=== PATIENT | female | born 1965 | race Caucasian/White ===

== ENCOUNTER → 2017-12-11 | Outpatient (CLI) | payer OTHER ==
[~2017-12-11] MED LIST: AMBIEN CR12.5 MG; CIPRO500 MG PO; HYDROCODONE BIT1 T11 PO; MOTRIN800 MG PO; Motrin,Rufen800 MG PO; PERCOCET 325 MG1 TA2 PO; PREDNISONE10 MG; PROZAC40 MG; VICODIN 5/500 505 MG
== END | disposition home or self-care (01) ==
LOC: MRI 11:00
DX: R55 Syncope and collapse (principal); R51 Headache

== ENCOUNTER 2018-07-29 19:21 | Emergency (ER) | payer OTHER ==
[~2018-07-29] VITALS: Ht 160 cm; Wt 65.8 kg
[2018-07-29 19:28] VITALS: BP 163/92
[2018-07-29] MEDS ORDERED: ROBAXIN-750750 MG PO (22:08)
[2018-07-29] MEDS ORDERED: PREDNISONE10 MG PO (22:08)
== END 2018-07-29 22:14 ==
LOC: ED 19:21
DX: M50.30 Other cervical disc degeneration, unspecified cervical region (principal); Z88.6 Allergy status to analgesic agent

== ENCOUNTER → 2018-11-12 | Outpatient (CLI) | payer OTHER ==
[~2018-11-12] MED LIST changes: +PREDNISONE10 MG PO; +ROBAXIN-750750 MG PO
[2018-11-12 13:18] LABS: CREATININE 0.68 mg/dL (0.55-1.02)
== END | disposition home or self-care (01) ==
LOC: LAB 12:46 → CT 12:46
PROVIDERS: Internal Medicine
DX: R06.02 Shortness of breath (principal)

== ENCOUNTER → 2019-02-12 | Outpatient (CLI) | payer OTHER ==
[2019-02-12 13:08] LABS: BASO % 0.6 % (0.0-1.0); EOS # 0.2 10*3/uL (0.0-0.4); EOS % 3.5 % (1.0-4.0); HEMATOCRIT 44.4 % (37.0-47.0); HEMOGLOBIN 14.4 g/dl (12.0-16.0); LYMPH # 1.4 10*3/uL (1.3-4.4); LYMPH % 26.6 % (27.0-41.0); MEAN CELL VOLUME 92.3 fl (81.0-99.0); MEAN CORPUSCULAR HGB 29.9 pg (27.0-31.0); MEAN CORPUSCULAR HGB CONC 32.4 g/dl (33.0-37.0); MEAN PLATELET VOLUME 10.6 fl (9.6-12.3); MONO # 0.7 10*3/uL (0.1-1.0); MONO % 14.3 % (3.0-9.0); NEUT # 2.9 10*3/uL (2.3-7.9); NEUT % 54.8 % (47.0-73.0); PLATELET COUNT AUTOMATED 238 10*3/uL (130-400); RED BLOOD COUNT 4.81 10*6/uL (4.10-5.10); RED CELL DISTRI WIDTH 12.4 % (0-14.5); WHITE BLOOD COUNT 5.2 10*3/uL (4.8-10.8)
[2019-02-12 13:28] LABS: ALBUMIN 3.5 gm/dl (3.1-4.5); BUN 11 mg/dl (7-24); CHLORIDE 107 mmol/L (98-107); CHOLESTEROL 168 mg/dL (<200); FREE T4 2.47 ng/dl (0.76-1.46); SGOT/AST 78 IU/L (3-35); SGPT/ALT 63 U/L (12-78); SODIUM 140 mmol/L (136-145); TRIGLYCERIDES 165 mg/dl (<150); VLDL CHOLESTEROL 33 mg/dL (6-40)
[2019-02-12 13:35] LABS: ALKALINE PHOSPHATASE 87 U/L (45-117); HDL CHOLESTEROL 50 mg/dl (40-60); LDL CHOLESTEROL 85 mg/dL (9-159)
[2019-02-12 13:38] LABS: THYROID STIM HORMONE (HS) < 0.005 uIU/ml (0.358-4.75)
[2019-02-12 14:04] LABS: VITAMIN D, 25-HYDROXY 57.9 ng/mL (30-100)
== END | disposition home or self-care (01) ==
LOC: MAMMO 10:40 → LAB 10:51 → RAD 11:00
PROVIDERS: Internal Medicine
DX: Z13.1 Encounter for screening for diabetes mellitus (principal); Z13.21 Encounter for screening for nutritional disorder; Z13.220 Encounter for screening for lipoid disorders; E03.9 Hypothyroidism, unspecified; E55.9 Vitamin D deficiency, unspecified; E78.2 Mixed hyperlipidemia; R70.0 Elevated erythrocyte sedimentation rate; R79.82 Elevated C-reactive protein (CRP); Z78.0 Asymptomatic menopausal state

== ENCOUNTER → 2019-03-05 | Outpatient (CLI) | payer OTHER | END | disposition home or self-care (01) | LOC: NM 03-04 07:00 | DX: E03.9 Hypothyroidism, unspecified (principal) ==

== ENCOUNTER → 2019-03-10 | Outpatient (CLI) | payer OTHER | END | disposition home or self-care (01) | LOC: US 13:26 | DX: E03.9 Hypothyroidism, unspecified (principal) ==

== ENCOUNTER → 2019-03-19 | Outpatient (CLI) | payer OTHER | END | disposition home or self-care (01) | LOC: US 10:51 | DX: R10.84 Generalized abdominal pain (principal) ==

== ENCOUNTER 2019-09-16 12:41 | Inpatient (IN) | payer OTHER ==
[~2019-09-16] VITALS: Ht 152.4 cm; Wt 57.2 kg
[2019-09-16 13:20] VITALS: BP 150/80
--- NOTE | 2019-09-16 13:20 | NUR ---
Time: 1319 A 54 year old FEMALE admitted to under services of DR. RAFAEL JAMA,KALANI. Pt. arrived via wheel chair from [place]. Chief complaint: ABD PAIN., DIARRHEA . LEXY MEDINA
[2019-09-16] MEDS ORDERED: AMBIEN10 M1 PO (13:28)
[2019-09-16] MEDS ORDERED: LYRICA100 M1 PO (13:29)
[2019-09-16] MEDS ORDERED: MIRAPEX1.5 MG PO (13:29)
[2019-09-16] MEDS ORDERED: SINGULAIR10 M1 PO (13:29)
[2019-09-16] MEDS ORDERED: NEXIUM40 MG PO (13:32)
[2019-09-16] MEDS ORDERED: CYMBALTA60 MG PO (13:36)
--- NOTE | 2019-09-16 13:37 | NUR ---
DR METZGER HERE TO SEE PT
[2019-09-16 13:54] LABS: BASO % 0.2 % (0.0-1.0); EOS # 0.1 10*3/uL (0.0-0.4); EOS % 2.4 % (1.0-4.0); HEMATOCRIT 43.3 % (37.0-47.0); HEMOGLOBIN 14.1 g/dl (12.0-16.0); LYMPH # 1.6 10*3/uL (1.3-4.4); LYMPH % 34.1 % (27.0-41.0); MEAN CELL VOLUME 83.8 fl (81.0-99.0); MEAN CORPUSCULAR HGB 27.3 pg (27.0-31.0); MEAN CORPUSCULAR HGB CONC 32.6 g/dl (33.0-37.0); MEAN PLATELET VOLUME 10.4 fl (9.6-12.3); MONO # 0.6 10*3/uL (0.1-1.0); MONO % 12.1 % (3.0-9.0); NEUT # 2.3 10*3/uL (2.3-7.9); PLATELET COUNT AUTOMATED 268 10*3/uL (130-400); RED BLOOD COUNT 5.17 10*6/uL (4.10-5.10); RED CELL DISTRI WIDTH 13.2 % (0-14.5); WHITE BLOOD COUNT 4.6 10*3/uL (4.8-10.8)
[2019-09-16 14:09] LABS: ALBUMIN 3.5 gm/dl (3.1-4.5); ALKALINE PHOSPHATASE 104 U/L (45-117); BUN 11 mg/dl (7-24); CHLORIDE 109 mmol/L (98-107); CREATININE 0.36 mg/dL (0.55-1.02); POTASSIUM 3.6 mmol/L (3.5-5.1); SGOT/AST 34 IU/L (3-35); SGPT/ALT 37 U/L (12-78); SODIUM 139 mmol/L (136-145); TOTAL PROTEIN 6.9 gm/dL (6.4-8.2)
[2019-09-16 14:12] LABS: BUN 10 mg/dl (7-24); CHLORIDE 108 mmol/L (98-107); CREATININE 0.36 mg/dL (0.55-1.02); FREE T4 5.79 ng/dl (0.76-1.46); POTASSIUM 3.7 mmol/L (3.5-5.1); SODIUM 139 mmol/L (136-145)
[2019-09-16 14:22] LABS: ETHYL ALCOHOL < 3.0 mg/dl (<3); THYROID STIM HORMONE (HS) < 0.005 uIU/ml (0.358-4.75)
--- NOTE | 2019-09-16 14:57 | NUR ---
IV started left antecubital with #22 angiocath after 1 attempts. The IV site was prepped with Chloraprep. Heparin lock attached. Sterile dressing applied. Patient tolerated precedure well. Procedure performed according to [facility] policy & procedure. LEXY MEDINA
[2019-09-16 16:00] VITALS: BP 148/73
[2019-09-16 20:00] VITALS: BP 151/68
--- NOTE | 2019-09-16 23:42 | NUR ---
DR. HALL STATED IT WAS OK TO CONTINUE HER JOSE LUIS
[2019-09-17] VITALS: BP 146/87
[2019-09-17 08:00] VITALS: BP 135/74
--- NOTE | 2019-09-17 09:00 | NUR ---
First Calender Worker in to see patient. She is currently not in her room. Will follow up at a later time.
[2019-09-17 12:00] VITALS: BP 126/66
--- NOTE | 2019-09-17 12:44 | NUR ---
Barker Operator in to talk to patient. Patient states lives at home with her life partner. There are 13 steps in the home. Physician: Dr. Michelle Youngblood [facility] health services: none Patient's level of ADLs: INDEPENDENT Patient has working utilities: yes DME: none Follow-up physician's appointment after d/c: she prefers to make her own follow up appt after discharge Does patient want to access PORTAL?: no Discharge plan discussed with patient. She lives at home with her life partner. She is independent in her ADLs and ambulation. Discussed home health care services and she denies any home needs at this time. When medically stable she will be discharged ot home. Her life partner will provide transportation on discharge. Stools for c-diff, O&P, and cultures pending. FLO MARR
[2019-09-17 16:00] VITALS: BP 152/78
--- NOTE | 2019-09-17 20:35 | NUR ---
COLO PREP STARTED.
[2019-09-18] VITALS (8 sets, daily range): BP systolic 108–146; BP diastolic 65–95
[2019-09-18 06:16] LABS: THYROID PEROXIDASE (TPO) AB 158 IU/mL (0-34)
--- NOTE | 2019-09-18 07:58 | NUR ---
Shift chart check completed.
--- NOTE | 2019-09-18 08:16 | NUR ---
pt complain of nausea, zofran given. will monitor for effectiveness. pt states stool clear yellow, received all colo prep
--- NOTE | 2019-09-18 09:00 | NUR ---
Customer Service Voice in to see patient. No new needs or request at this time. She denies any home needs. When medically stable she will be discharged to home. She is scheduled for an EGD/colo today.
[2019-09-18 14:08] LABS: THYROGLOBULIN ANTIBODY <1.0 IU/mL (0.0-0.9)
--- NOTE | 2019-09-18 14:13 | NUR ---
PT OFF FLOOR FOR EGD/COLO
[2019-09-19] VITALS: BP 134/89
[2019-09-19] MEDS ORDERED: PROPYLTHIOURACI50 M1 PO (02:02)
[2019-09-19] MEDS ORDERED: LACTINEX 0.2 MG1 TAB PO (02:02)
[2019-09-19] MEDS ORDERED: QUESTRAN LIGHT4 GM PO (02:02)
[2019-09-19] MEDS ORDERED: AMBIEN10 M1 PO (02:02)
[2019-09-19] MEDS ORDERED: Carafate1 GM PO (02:02)
[2019-09-19] MEDS ORDERED: LYRICA50 M1 PO (02:02)
[2019-09-19] MEDS ORDERED: NEXIUM40 MG PO (02:02)
[2019-09-19 06:07] LABS: BASO % 0.3 % (0.0-1.0); EOS # 0.2 10*3/uL (0.0-0.4); EOS % 3.9 % (1.0-4.0); HEMATOCRIT 43.9 % (37.0-47.0); HEMOGLOBIN 14.4 g/dl (12.0-16.0); LYMPH # 2.6 10*3/uL (1.3-4.4); LYMPH % 42.3 % (27.0-41.0); MEAN CELL VOLUME 83.1 fl (81.0-99.0); MEAN CORPUSCULAR HGB 27.3 pg (27.0-31.0); MEAN CORPUSCULAR HGB CONC 32.8 g/dl (33.0-37.0); MONO # 0.9 10*3/uL (0.1-1.0); MONO % 14.8 % (3.0-9.0); NEUT # 2.4 10*3/uL (2.3-7.9); NEUT % 38.4 % (47.0-73.0); PLATELET COUNT AUTOMATED 293 10*3/uL (130-400); RED BLOOD COUNT 5.28 10*6/uL (4.10-5.10); RED CELL DISTRI WIDTH 13.2 % (0-14.5); WHITE BLOOD COUNT 6.2 10*3/uL (4.8-10.8)
[2019-09-19 06:36] LABS: BUN 13 mg/dl (7-24); CHLORIDE 112 mmol/L (98-107); POTASSIUM 3.4 mmol/L (3.5-5.1); SODIUM 142 mmol/L (136-145)
[2019-09-19 08:00] VITALS: BP 137/81
--- NOTE | 2019-09-19 10:54 | NUR ---
Discharge instructions reviewed with patient/family. Patient receptive and verbalizes understanding. Follow-up care understood. Written instructions given to patient/family. iv removed, dressing applied. pt given new rx to have filled at pharmacy. JULIUS SALGUERO
== END 2019-09-19 10:54 | disposition home or self-care (01) | DRG 241 ==
LOC: 5E 12:41
PROVIDERS: Internal Medicine Gastroenterology; ADMIT Internal Medicine
PROC: 0DB68ZX Excision of Stomach, Via Natural or Artificial Opening Endoscopic, Diagnostic (ICD-10-PCS; principal; 2019-09-18)
PROC: 0DBE8ZX Excision of Large Intestine, Via Natural or Artificial Opening Endoscopic, Diagnostic (ICD-10-PCS; 2019-09-18)
DX: K29.20 Alcoholic gastritis without bleeding (principal); E05.00 Thyrotoxicosis with diffuse goiter without thyrotoxic crisis or storm; T18.2XXA Foreign body in stomach, initial encounter; X58.XXXA Exposure to other specified factors, initial encounter; Y90.9 Presence of alcohol in blood, level not specified; E03.9 Hypothyroidism, unspecified; G89.29 Other chronic pain; M54.9 Dorsalgia, unspecified; G47.00 Insomnia, unspecified; R63.4 Abnormal weight loss; F10.20 Alcohol dependence, uncomplicated; F17.200 Nicotine dependence, unspecified, uncomplicated; F41.9 Anxiety disorder, unspecified; Z88.5 Allergy status to narcotic agent; Z68.22 Body mass index [BMI] 22.0-22.9, adult; Y93.89 Activity, other specified; Y92.89 Other specified places as the place of occurrence of the external cause; Y99.8 Other external cause status

== ENCOUNTER 2020-07-07 03:04 | Emergency (ER) | payer OTHER ==
[~2020-07-07] VITALS: Ht 160 cm; Wt 67.1 kg
[~2020-07-07 03:04] MED LIST changes: +AMBIEN10 M1 PO; +CYMBALTA60 MG PO; +Carafate1 GM PO; +LACTINEX 0.2 MG1 TAB PO; +LYRICA100 M1 PO; +LYRICA50 M1 PO; +MIRAPEX1.5 MG PO; +NEXIUM40 MG PO; +PROPYLTHIOURACI50 M1 PO; +QUESTRAN LIGHT4 GM PO; +SINGULAIR10 M1 PO
[2020-07-07 03:30] VITALS: BP 161/78
[2020-07-07] MEDS ORDERED: CYCLOBENZAPRINE10 MG PO (03:58)
== END 2020-07-07 04:12 | disposition home or self-care (01) ==
LOC: ED 03:04
DX: G89.29 Other chronic pain (principal); M54.2 Cervicalgia; Z88.6 Allergy status to analgesic agent; Z79.899 Other long term (current) drug therapy

== ENCOUNTER 2020-07-10 15:17 | Emergency (ER) | payer OTHER ==
[~2020-07-10] VITALS: Wt 63.0 kg
[~2020-07-10 15:17] MED LIST changes: +CYCLOBENZAPRINE10 MG PO
[2020-07-10 15:22] VITALS: BP 182/90
[2020-07-10] MEDS ORDERED: PERCOCET 5-3251 EACH PO (16:31)
== END 2020-07-10 16:59 | disposition home or self-care (01) ==
LOC: ED 15:17
DX: M54.12 Radiculopathy, cervical region (principal); Z88.5 Allergy status to narcotic agent; Z79.899 Other long term (current) drug therapy

== ENCOUNTER → 2020-12-20 | Outpatient (CLI) | payer OTHER ==
[~2020-12-20] MED LIST changes: +PERCOCET 5-3251 EACH PO
[2020-12-20 16:55] LABS: FREE T4 0.97 ng/dl (0.76-1.46)
[2020-12-20 17:00] LABS: THYROID STIM HORMONE (HS) 0.161 uIU/ml (0.358-4.75)
== END | disposition home or self-care (01) ==
LOC: LAB 16:04
PROVIDERS: ATTEND Internal Medicine
DX: E05.00 Thyrotoxicosis with diffuse goiter without thyrotoxic crisis or storm (principal)

== ENCOUNTER → 2021-01-17 | Outpatient (CLI) | payer OTHER | END | disposition home or self-care (01) | LOC: US 11:00 | PROVIDERS: ATTEND Internal Medicine Endocrinology, Diabetes & Metabolism | DX: C73 Malignant neoplasm of thyroid gland (principal) ==

== ENCOUNTER → 2022-08-27 | Outpatient (CLI) | payer MEDICARE | END | disposition home or self-care (01) | LOC: RAD 08-20 08:00 | PROVIDERS: ATTEND Internal Medicine | DX: Z78.0 Asymptomatic menopausal state (principal) ==

== ENCOUNTER → 2022-08-29 | Outpatient (CLI) | payer MEDICARE | END | disposition home or self-care (01) | LOC: MAMMO 08-22 09:00 | PROVIDERS: ATTEND Internal Medicine | DX: R92.0 Mammographic microcalcification found on diagnostic imaging of breast (principal); R92.8 Other abnormal and inconclusive findings on diagnostic imaging of breast ==

== ENCOUNTER → 2024-03-27 | Outpatient (CLI) | payer MEDICARE | END | disposition home or self-care (01) | LOC: MRI 09:00 | PROVIDERS: ATTEND Internal Medicine | DX: S73.191A Other sprain of right hip, initial encounter (principal); M70.61 Trochanteric bursitis, right hip; M16.11 Unilateral primary osteoarthritis, right hip; M76.891 Other specified enthesopathies of right lower limb, excluding foot; X58.XXXA Exposure to other specified factors, initial encounter; Y93.89 Activity, other specified; Y92.89 Other specified places as the place of occurrence of the external cause; Y99.8 Other external cause status ==

== ENCOUNTER → 2024-03-31 | Outpatient (CLI) | payer MEDICARE | END | disposition home or self-care (01) | LOC: US 01:17 | PROVIDERS: ATTEND Internal Medicine | DX: R10.2 Pelvic and perineal pain (principal); Z90.710 Acquired absence of both cervix and uterus ==